=== PATIENT | male | born 1970 | race Caucasian/White ===

== ENCOUNTER 2021-04-04 03:19 | Outpatient (CLI) | payer OTHER, SELFPAY ==
[2021-04-04 07:51] LABS: Abs Immature Grans 0.02 10^3/uL (0.0-0.06); Absolute Basophil Count 0.05 10^3/uL (0.0-0.2); Absolute Eosinophil Count 0.04 10^3/uL (0.0-0.7); Absolute Lymphocyte Count 0.48 10^3/uL (1.2-3.4); Absolute Monocyte Count 0.46 10^3/uL (0.1-0.8); Basophils % 1.2; HCT 42.6 % (40.0-50.0); HGB 14.2 g/dL (13.5-17.5); Immature Grans % 0.5; Lymphocytes % 11.9; MCH 35.5 pg (27.0-33.0); MCHC 33.3 % (32.0-36.0); MCV 106.5 fL (80-95); MPV 9.9 fL (8.0-11.0); Monocytes % 11.4; Nucleated RBC 0 %; Platelet Count 423 10^3/uL (130-400); RDW 13.4 % (11.8-14.1); RDW-SD 53.5 fL; WBC 4.05 10^3/uL (4.4-10.8)
[2021-04-04 09:25] LABS: ALT 55 U/L (16-63); AST 32 U/L (15-37); Alkaline Phosphatase 58 U/L (46-116); Bilirubin, Direct 0.3 mg/dL (0.0-0.2); Bilirubin, Total 1.8 mg/dL (0.2-1.0); Total Protein 7.3 g/dL (6.4-8.2)
== END 2021-04-04 03:20 | disposition home or self-care (01) ==
LOC: LBO 03:19
PROVIDERS: Visit Provider Internal Medicine Gastroenterology
DX: R74.8 Abnormal levels of other serum enzymes (principal); K51.019 Ulcerative (chronic) pancolitis with unspecified complications; Z80.0 Family history of malignant neoplasm of digestive organs
CPT/HCPCS: 36415; 80076; 85025

== ENCOUNTER 2022-06-19 01:45 | Outpatient (CLI) | payer OTHER, SELFPAY ==
[2022-06-19 15:06] LABS: Abs Immature Grans 0.02 10^3/uL (0.0-0.06); Absolute Basophil Count 0.05 10^3/uL (0.0-0.2); Absolute Eosinophil Count 0.08 10^3/uL (0.0-0.7); Absolute Lymphocyte Count 0.41 10^3/uL (1.2-3.4); Absolute Monocyte Count 1.09 10^3/uL (0.1-0.8); Absolute Neutrophil Count 4.48 10^3/uL (1.2-6.7); Basophils % 0.8; Eosinophils % 1.3; HCT 40.4 % (40.0-50.0); HGB 13.3 g/dL (13.5-17.5); Immature Grans % 0.3; Lymphocytes % 6.7; MCH 35.4 pg (27.0-33.0); MCHC 32.9 % (32.0-36.0); MCV 107 fL (80-95); MPV 9.6 fL (8.0-11.0); Monocytes % 17.8; Neutrophils % 73.1; Platelet Count 391 10^3/uL (130-400); RBC 3.76 10^6/uL (4.36-5.78); RDW 14.6 % (11.8-14.1); RDW-SD 57.7 fL; WBC 6.13 10^3/uL (4.4-10.8)
[2022-06-19 16:12] LABS: Diff Comment RBC Morph Reviewed; Macrocytosis 1+
[2022-06-19 16:30] LABS: ALT 39 U/L (16-63); AST 27 U/L (15-37); Albumin 4.1 g/dL (3.4-5.0); Alkaline Phosphatase 67 U/L (46-116); Anion Gap 6.1 mmol/L (3-11); BUN 15 mg/dL (7-18); Bilirubin, Total 1.2 mg/dL (0.2-1.0); CO2 30.9 mmol/L (21.0-32.0); CREATININE 1.4 mg/dL (0.70-1.30); Calcium 8.5 mg/dL (8.5-10.1); Chloride 102 mmol/L (98-107); Estimated GFR 61.23 (mL/min/1.73m2); Glucose 102 mg/dL (74-106); Potassium 3.3 mmol/L (3.5-5.1); Sodium 139 mmol/L (136-145); Total Protein 7.7 g/dL (6.4-8.2)
== END 2022-06-19 01:46 | disposition home or self-care (01) ==
PROVIDERS: PCP Family Medicine; Visit Provider Internal Medicine Gastroenterology
DX: K51.019 Ulcerative (chronic) pancolitis with unspecified complications (principal)
CPT/HCPCS: 36415; 80053; 85025

== ENCOUNTER 2023-05-05 04:03 | Outpatient (CLI) | payer OTHER, SELFPAY ==
[2023-05-05 12:12] LABS: Abs Immature Grans 0.01 10^3/uL (0.0-0.06); Absolute Basophil Count 0.05 10^3/uL (0.0-0.2); Absolute Eosinophil Count 0.04 10^3/uL (0.0-0.7); Absolute Monocyte Count 0.71 10^3/uL (0.1-0.8); Absolute Neutrophil Count 3.84 10^3/uL (1.2-6.7); Basophils % 0.9; Eosinophils % 0.7; HCT 42.3 % (40.0-50.0); HGB 14.3 g/dL (13.5-17.5); Immature Grans % 0.2; Lymphocytes % 16.2; MCH 36.2 pg (27.0-33.0); MCHC 33.8 % (32.0-36.0); MCV 107 fL (80-95); MPV 10.3 fL (8.0-11.0); Monocytes % 12.8; Neutrophils % 69.2; Platelet Count 471 10^3/uL (130-400); RBC 3.95 10^6/uL (4.36-5.78); RDW-SD 56.3 fL; WBC 5.55 10^3/uL (4.4-10.8)
[2023-05-05 12:25] LABS: Macrocytosis 2+
[2023-05-05 12:58] LABS: ALT 55 U/L (16-63); AST 33 U/L (15-37); Albumin 4.2 g/dL (3.4-5.0); Alkaline Phosphatase 69 U/L (46-116); Anion Gap 9.9 mmol/L (3-11); BUN 12 mg/dL (7-18); Bilirubin, Total 1.3 mg/dL (0.2-1.0); CO2 28.1 mmol/L (21.0-32.0); CREATININE 0.9 mg/dL (0.70-1.30); Chloride 104 mmol/L (98-107); Glucose 90 mg/dL (74-106); Potassium 3.6 mmol/L (3.5-5.1); Sodium 142 mmol/L (136-145); Total Protein 7.7 g/dL (6.4-8.2)
== END 2023-05-05 04:04 | disposition home or self-care (01) ==
LOC: LBO 04:06
PROVIDERS: PCP Family Medicine; Visit Provider Internal Medicine Gastroenterology
DX: K51.019 Ulcerative (chronic) pancolitis with unspecified complications (principal)
CPT/HCPCS: 36415; 80053; 85025

== ENCOUNTER 2023-09-17 12:26 | Outpatient (REF) | payer BC, SELFPAY ==
[2023-09-17 15:37] LABS: Abs Immature Grans 0.01 10^3/uL (0.0-0.06); Absolute Basophil Count 0.03 10^3/uL (0.0-0.2); Absolute Eosinophil Count 0.03 10^3/uL (0.0-0.7); Absolute Lymphocyte Count 0.58 10^3/uL (1.2-3.4); Absolute Monocyte Count 0.49 10^3/uL (0.1-0.8); Absolute Neutrophil Count 2.95 10^3/uL (1.2-6.7); Basophils % 0.7; Eosinophils % 0.7; HCT 42.1 % (40.0-50.0); HGB 13.9 g/dL (13.5-17.5); Immature Grans % 0.2; Lymphocytes % 14.2; MCH 34.8 pg (27.0-33.0); MCV 105 fL (80-95); MPV 10.3 fL (8.0-11.0); Neutrophils % 72.2; Platelet Count 446 10^3/uL (130-400); RDW 14.1 % (11.8-14.1); RDW-SD 55.6 fL; WBC 4.09 10^3/uL (4.4-10.8)
[2023-09-17 16:00] LABS: Diff Comment RBC Morph Reviewed; Macrocytosis 2+
[2023-09-17 16:03] LABS: ALT 70 U/L (16-63); AST 34 U/L (15-37); Albumin 3.9 g/dL (3.4-5.0); Alkaline Phosphatase 66 U/L (46-116); Anion Gap 7.2 mmol/L (3-11); BUN 16 mg/dL (7-18); Bilirubin, Total 1.4 mg/dL (0.2-1.0); CO2 28.8 mmol/L (21.0-32.0); CREATININE 0.9 mg/dL (0.70-1.30); Chloride 105 mmol/L (98-107); Cholesterol 152 mg/dL (<200); Estimated GFR 102.76 (mL/min/1.73m2); Glucose 82 mg/dL (74-106); HDL Cholesterol 62 mg/dL (40-60); Potassium 4.2 mmol/L (3.5-5.1); Sodium 141 mmol/L (136-145); TSH 3.54 uIU/Ml (0.36-3.74); Total Protein 7.2 g/dL (6.4-8.2)
[2023-09-17 16:04] LABS: Triglyceride <25 mg/dL (<150)
[2023-09-17 16:37] LABS: LDL CHOLESTEROL 75 mg/dL (<100)
== END 2023-09-17 12:27 | disposition home or self-care (01) ==
LOC: NCHCN 12:26
PROVIDERS: PCP Family Medicine; Referring Provider Student in an Organized Health Care Education/Training Program; Visit Provider Student in an Organized Health Care Education/Training Program
DX: K51.90 Ulcerative colitis, unspecified, without complications (principal); Z13.220 Encounter for screening for lipoid disorders; Z13.29 Encounter for screening for other suspected endocrine disorder; Z13.228 Encounter for screening for other metabolic disorders
CPT/HCPCS: 80053; 80061; 83721; 84443; 85025

== ENCOUNTER 2023-09-27 12:59 | Outpatient (REF) | payer BC, SELFPAY ==
[2023-09-27 19:20] LABS: Folate 13.5 ng/mL (8.6-20.0); Vitamin B12 936 pg/mL (193-986)
== END 2023-09-27 13:00 | disposition home or self-care (01) ==
LOC: NCHCN 12:59
PROVIDERS: PCP Family Medicine; Visit Provider Student in an Organized Health Care Education/Training Program
DX: D53.8 Other specified nutritional anemias (principal)
CPT/HCPCS: 82607; 82746

== ENCOUNTER 2024-01-25 03:32 | Outpatient (CLI) | payer OTHER, SELFPAY ==
--- OUTSIDE RECORDS SUMMARY | 2024-01-25 03:35 | XMS_ITS | Data Portability ---
Author Organization [place] - [facility] Address [address] Dodd [facility] [place] [address] Assessment No assessment recorded. Plan of Treatment Reminders Order Date Submit Date Provider Last Modified By Organization Details Last Modified Time Details Appointments Annual Wellness Exam 40 2024 08:00A Lilian Fagan Not available Not available Not available Lab lipid panel, serum [email or web address] [facility] (Registration ), [address] [place] [address] [place], [address], 09/24/2023 13:46:36 CMP, serum or plasma - 1 SST, 1LAV 2023 024 [facility] (Registration ), [address] [place] [address] [place], [address], 09/17/2023 16:07:17 CBC w/ auto diff 2023 024 [facility] (Registration ), [address] [place] [address] [place], [address], 09/17/2023 16:02:20 TSH, serum or plasma [address] [facility] (Registration ), [address] [place] [address] [place], [address], 09/24/2023 13:46:36 vitamin B12 + folate, serum or blood - Right Ac 1 tiger 2023 024 [facility] (Registration ), [address] [place] [address] [place], [address], 10/25/2023 13:34:27 Referral None recorded. Procedures None recorded. Surgeries None recorded. Imaging None recorded. Medication Orders None recorded. Patient TargetsNo targets recorded. Patient Instructions Encounter Date Encounter Id Patient Instructions Last Modified By Organization Details Last Modified Time 09/17/2023 [id number] Go slow with the introduction back to running. If starting back to cross-fit/weight training/go slow with low reps, no weight, just focusing on form. Stop any strenght training set before you get shaky and wait until any muscle soreness resolves before working out again. [email or web address] Not available 09/17/2023 09:20:45 Reason for Referral None Reported. Results Created Date Observation Date Name Description Value Unit Range Abnormal Flag LastModifiedBy Organization Detail LastModifiedTime 09/17/1909/17/2023 COMPL ETE BLOOD COUNT W/DIF F WBC 4.09 10_3/ uL 4.4-10 .8 low Not Available [address] [facility] [place], [address] 09/17/2023 16:02:20 09/17/19 24 09/17/2023 COMPL ETE BLOOD COUNT W/DIF F RBC 4.00 10_6/ uL 4.36-5 .78 low Not Available [address] [place], [address] 09/17/2023 16:02:20 09/17/19 24 09/17/2023 COMPL ETE BLOOD COUNT W/DIF F HGB 13.9 g/dL 13.5-1 7.5 normal Not Available [address] [place], [address] 09/17/2023 16:02:20 09/17/19 24 09/17/2023 COMPL ETE BLOOD COUNT W/DIF F HCT 42.1 % 40.0-5 0.0 normal Not Available [address] [place], [address] 09/17/2023 16:02:20 09/17/19 24 09/17/2023 COMPL ETE BLOOD COUNT W/DIF F MCV 105 fL 80-95 high Not Available [place] [address] [place], [address] 09/17/2023 16:02:20 09/17/19 24 09/17/2023 COMPL ETE BLOOD COUNT W/DIF F MCH 34.8 pg 27.0-3 3.0 high Not Available [address] [place], [address] 09/17/2023 16:02:20 09/17/19 24 09/17/2023 COMPL ETE BLOOD COUNT W/DIF F MCHC 33.0 % 32.0-3 6.0 normal Not Available [address] [place], [address] 09/17/2023 16:02:20 09/17/19 24 09/17/2023 COMPL ETE BLOOD COUNT W/DIF F RDW 14.1 % 11.8-1 4.1 normal Not Available [address] [place], [address] 09/17/2023 16:02:20 09/17/19 24 09/17/2023 COMPL ETE BLOOD COUNT W/DIF F platelet count 446 10_3/ uL 130-40 0 high Not Available [address] [place], [address] 09/17/2023 16:02:20 09/17/19 24 09/17/2023 COMPL ETE BLOOD COUNT W/DIF F MPV 10.3 fL 8.0-11 .0 normal Not Available [address] [place], [address] 09/17/2023 16:02:20 09/17/19 24 09/17/2023 COMPL ETE BLOOD COUNT W/DIF F neutrophils % 72.2 Not Available [address] [place], [address] 09/17/2023 16:02:20 09/17/19 24 09/17/2023 COMPL ETE BLOOD COUNT W/DIF F lymphocytes % 14.2 Not Available [address] [place], [address] 09/17/2023 16:02:20 09/17/19 24 09/17/2023 COMPL ETE BLOOD COUNT W/DIF F monocytes % 12.0 Not Available [address] [place], [address] 09/17/2023 16:02:20 09/17/19 24 09/17/2023 COMPL ETE BLOOD COUNT W/DIF F eosinophils % 0.7 Not Available [address] [place], [address] 09/17/2023 16:02:20 09/17/19 24 09/17/2023 COMPL ETE BLOOD COUNT W/DIF F basophils % 0.7 Not Available [address] [place], [address] 09/17/2023 16:02:20 09/17/19 24 09/17/2023 COMPL ETE BLOOD COUNT W/DIF F immature grans % 0.2 Not Available [address] [place], [address] 09/17/2023 16:02:20 09/17/19 24 09/17/2023 COMPL ETE BLOOD COUNT W/DIF F nucleated RBC 0.0 % 0.0-0. 3 normal Not Available [address] [place], [address] 09/17/2023 16:02:20 09/17/19 24 09/17/2023 COMPL ETE BLOOD COUNT W/DIF F absolute neutrophil count 2.95 10_3/ uL 1.2-6. 7 normal Not Available [address] [place], [address] 09/17/2023 16:02:20 09/17/19 24 09/17/2023 COMPL ETE BLOOD COUNT W/DIF F absolute lymphocyte count 0.58 10_3/ uL 1.2-3. 4 low Not Available [address] [place], [address] 09/17/2023 16:02:20 09/17/19 24 09/17/2023 COMPL ETE BLOOD COUNT W/DIF F absolute monocyte count 0.49 10_3/ uL 0.1-0. 8 normal Not Available [address] [place], [address] 09/17/2023 16:02:20 09/17/19 24 09/17/2023 COMPL ETE BLOOD COUNT W/DIF F absolute eosinophil count 0.03 10_3/ uL 0.0-0. 7 normal Not Available [address] [place], [address] 09/17/2023 16:02:20 09/17/19 24 09/17/2023 COMPL ETE BLOOD COUNT W/DIF F absolute basophil count 0.03 10_3/ uL 0.0-0. 2 normal Not Available [address] [place], [address] 09/17/2023 16:02:20 09/17/19 24 09/17/2023 COMPL ETE BLOOD COUNT W/DIF F diff comment RBC Morph Review ed Not Available [address] [place], [address] 09/17/2023 16:02:20 09/17/19 24 09/17/2023 COMPL ETE BLOOD COUNT W/DIF F RBC morphology See Below Not Available [address] [place], [address] 09/17/2023 16:02:20 09/17/19 24 09/17/2023 COMPL ETE BLOOD COUNT W/DIF F macrocytosis 2+ Not Available Nor [address] [place], [address] 09/17/2023 16:02:20 09/17/19 24 09/17/2023 COMPR EHENS BETHANY METAB OLIC PANEL calcium 9.0 mg/dL 8.5-10 .1 normal Not Available [address] [place], [address] 09/17/2023 16:07:17 09/17/19 24 09/17/2023 COMPR EHENS BETHANY METAB OLIC PANEL glucose 82 mg/dL 74-106 normal Not Available [address] [place], [address] 09/17/2023 16:07:17 09/17/19 24 09/17/2023 COMPR EHENS BETHANY METAB OLIC PANEL BUN 16 mg/dL 7-18 normal Not Available [address] [place], [address] 09/17/2023 16:07:17 09/17/19 24 09/17/2023 COMPR EHENS BETHANY METAB OLIC PANEL creatinine 0.9 mg/dL 0.70-1 .30 normal Not Available [address] [place], [address] 09/17/2023 16:07:17 09/17/19 24 09/17/2023 COMPR EHENS BETHANY METAB OLIC PANEL estimated GFR 102.76 mL/min /1.73m 2 Not Available [address] [place], [address] 09/17/2023 16:07:17 09/17/19 24 09/17/2023 COMPR EHENS BETHANY METAB OLIC PANEL total protein 7.2 g/dL 6.4-8. 2 normal Not Available [address] [place], [address] 09/17/2023 16:07:17 09/17/19 24 09/17/2023 COMPR EHENS BETHANY METAB OLIC PANEL albumin 3.9 g/dL 3.4-5. 0 normal Not Available [address] [place], [address] 09/17/2023 16:07:17 09/17/19 24 09/17/2023 COMPR EHENS BETHANY METAB OLIC PANEL bilirubin, total 1.4 mg/dL 0.2-1. 0 high Not Available [address] [place], [address] 09/17/2023 16:07:17 09/17/1909/17/2023 COMPR EHENS BETHANY METAB OLIC PANEL alk phos 66 U/L 46-116 normal Not Available [address] [place], [address] 09/17/2023 16:07:17 09/17/19 24 09/17/2023 COMPR EHENS BETHANY METAB OLIC PANEL sodium 141 mmol/ L 136-14 5 normal Not Available [address] [place], [address] 09/17/2023 16:07:17 09/17/19 24 09/17/2023 COMPR EHENS BETHANY METAB OLIC PANEL potassium 4.2 mmol/ L 3.5-5. 1 normal Not Available [address] [place], [address] 09/17/2023 16:07:17 09/17/19 24 09/17/2023 COMPR EHENS BETHANY METAB OLIC PANEL chloride 105 mmol/ L 98-107 normal Not Available [address] [place], [address] 09/17/2023 16:07:17 09/17/19 24 09/17/2023 COMPR EHENS BETHANY METAB OLIC PANEL CO2 28.8 mmol/ L 21.0-3 2.0 normal Not Available [address] [place], [address] 09/17/2023 16:07:17 09/17/19 24 09/17/2023 COMPR EHENS BETHANY METAB OLIC PANEL anion gap 7.2 mmol/ L 3-11 normal Not Available [address] [place], [address] 09/17/2023 16:07:17 09/17/19 24 09/17/2023 COMPR EHENS BETHANY METAB OLIC PANEL AST 34 U/L 15-37 normal Not Available [address] [place], [address] 09/17/2023 16:07:17 09/17/19 24 09/17/2023 COMPR EHENS BETHANY METAB OLIC PANEL ALT 70 U/L 16-63 high Not Available [address] [place], [address] 09/17/2023 16:07:17 09/17/19 24 09/17/2023 LIPID 2 cholesterol 152 mg/dL <200 Not Available [address] [place], [address] 09/17/2023 16:07:18 09/17/19 24 09/17/2023 LIPID 2 triglyceride <25 mg/dL <150 Not Available [address] [place], [address] 09/17/2023 16:07:18 09/17/19 24 09/17/2023 LIPID 2 HDL cholesterol 62 mg/dL 40-60 Not Available Anthony monsalve [address] [place], [address] 09/17/2023 16:07:18 09/17/19 24 09/17/2023 LIPID 2 calculated LDL TNP mg/dL <100 Not Available [address] [place], [address] 09/17/2023 16:07:18 09/17/19 24 09/17/2023 TSH TSH 3.54 uIU/m L 0.36-3 .74 normal Not Available [address] [place], [address] 09/17/2023 16:07:19 09/17/19 24 09/17/2023 LIPID 2 cholesterol 152 mg/dL <200 Not Available [address] [place], [address] 09/17/2023 16:43:23 09/17/19 24 09/17/2023 LIPID 2 triglyceride <25 mg/dL <150 Not Available [address] [place], [address] 09/17/2023 16:43:23 09/17/19 24 09/17/2023 LIPID 2 HDL cholesterol 62 mg/dL 40-60 Not Available Anthony monsalve [address] [place], [address] 09/17/2023 16:43:23 09/17/19 24 09/17/2023 LIPID 2 calculated LDL TNP mg/dL <100 Not Available [address] [place], [address] 09/17/2023 16:43:23 09/17/19 24 09/17/2023 DIREC T LDL CHOL direct LDL chol 75 mg/dL <100 Not Available [address] [place], [address] 09/17/2023 16:43:24 09/17/19 24 09/17/2023 TSH TSH 3.54 uIU/m L 0.36-3 .74 normal Not Available [facility] [address] [facility] [place], [address] 09/17/2023 16:43:24 09/27/19 24 09/27/2023 VITAM IN B12 vitamin B12 936 pg/mL 193-98 6 normal Not Available [place] [address] [facility] [place], [address] 09/27/2023 19:28:37 09/27/19 24 09/27/2023 FOLAT E folate 13.5 NG/mL 8.6-20 .0 normal Not Available [address] [place], [address] 09/27/2023 19:28:37 Result Notes None recorded. Problems Name Status Onset Date Resolution Date Notes Provider Name and Address Organization Details Recorded Time Diarrhea Completed 08/31/2023 SHERRILL BALDERAS, [facility] 08/31/2023 07:17:49 Liver enzymes level above reference range Completed 08/31/2023 SHERRILL BALDERAS, [facility] 08/31/2023 07:23:06 Internal hemorrhoids Completed 08/31/2023 SHERRILL BALDERAS, [facility] 08/31/2023 07:17:42 Painful rectal bleeding Completed 08/31/2023 SHERRILL BALDERAS, [facility] 08/31/2023 07:17:57 Ulcerative colitis Completed 08/31/2023 WILMAR BADILLO [address], [place], [address] , [facility] 09/17/2023 07:36:47 Ulcerative colitis Active Follows with [facility], Dr. Cristino Sanchez. WILMAR BADILLO [address], [place], [address] , [facility]. 09/17/2023 07:36:47 Liver enzymes level above reference range [facility]23 07:23:06 Macrocytic anemia Active 024 WILMAR BADILLO [address], [place], [address] , [facility] 09/21/2023 06:59:44 Problem Notes None recorded. Procedures Surgical History Date Name Laterality Status Provider Name and Address Organization Details Recorded Time 1 [facility]23 07:18:29 6 sigmoidoscopy completed SHERRILL BALDERAS [facility] 08/31/2023 07:19:07 Imaging Results None recorded. Procedure Notes None recorded. Medical Equipment None Reported. Allergies No known drug allergies Medications Name Sig Start Date Stop Date Status Note LastModified by Organization Details LastModified Time sulfasalazine 500 mg tablet Take 4 tablets twice a day by oral route. 2021 active Not Available Not Available Not Avai lable mercaptopurine 50 mg tablet Take 2 tablets every day by oral route. 2021 active Not Available Not Available Not Avai lable folic acid 1 mg tablet Take 1 tablet every day by oral route. 2021 active Not Available Not Available Not Avai lable multivitamin 1 tablet daily active Not Available Not Available No t Available Vitals Date Recorded Body height Body mass index (BMI) Body weight Body temperature Oxygen saturation Oxygen saturation in Arterial blood by Pulse oximetry Heart rate Systolic blood pressure Diastolic blood pressure Provider Name and Address Organization Details Last Updated DateTime 4 178.56 cm 31.5 kg/m2 310562. 07 g 97.9 [degF] 98 % 98 % 77 /min 130 mm[Hg] 98 mm[Hg] SHAGGY LYONS MA [facility] 4 08:00:03 Social History Question Answer Notes LastModified by Organizat ion Details LastModified Time Tobacco Smoking Status Never Smoker SHERRILL BALDERAS [facility] 09/07/2023 13:26:04 Would You Say That, In General, Your Health Is Good Information not available 09/07/2023 How Often Does Anyone, Including Family, Physically Hurt You? Never Information not available 09/07/2023 How Often Does Anyone, Including Family, Insult Or Talk Down To You? Never Information no t available 09/07/2023 How Often Does Anyone, Including Family, Threaten You With Harm? Never Information not available 09/07/2023 How Often Does Anyone, Including Family, Scream Or Curse At You? Never Information not available 09/07/2023 Within The Past 12 Months, You Worried That Your Food Would Run Out Before You Got Money To Buy More. Never True Information n ot available 09/07/2023 Within The Past 12 Months, The Food You Bought Just Didn't Last And You Didn't Have Money To Get More. Never True Information not available 09/07/2023 How Hard Is It For You To Pay For The Very Basics Like Food, Housing, Medical Care, And Heating? Would You Say It Is: Not Hard At All Information not available 09/07/2023 In The Past 12 Months, Has Lack Of Reliable Transportation Kept You From Medical Appointments, Meetings, Work Or From Getting Things Needed For Daily Living? No Information not available 09/07/2023 What Is Your Housing Situation Today? I Have Housing. Information not available 09/07/2023 How Often In The Past Year Have You Used Marijuana (including Smoking, Vaping, Dabbing, Or Edibles)? Monthly Or Less Information not available 09/07/2023 How Often In The Past Year Have You Used Prescription Medications That Were Not Prescribed To You? Never Information not available 09/07/2023 How Often In The Past Year Have You Taken Your Own Prescription Medication More Than The Way It Was Prescribed Or For Different Reasons Than Its Intended Purpose? Never Information not available 09/07/2023 How Often In The Past Year Have You Used Other Drugs (for Example, Heroin, Cocaine, Meth, Salvia, Inhalants)? Never Information not available 09/07/2023 Have You Ever Used IV Drugs? No Information not available 09/07/2023 Date Of Most Recent SBINS 09/07/2023 Information not available 09/07/2023 Do You Or Have You Ever Used Any Other Forms Of Tobacco Or Nicotine? No Information not available 09/07/2023 Sex: Male Functional Status None recorded. Mental Status None recorded. Family History Relationship Description Onset Age of this Age Resolved Age Notes Father Malignant tumor of colon 55 Medical History No medical history recorded. Immunizations Vaccine Type Date Status Provider Name and Address Organization Details Recorded Time SARS-COV-2 (COVID-19) vaccine, UNSPECIFIED 12/01/2020 completed SHERRILL BALDERAS [facility] 09/16/2023 08:45:42 Tdap 01/17/2011 completed SHERRILL BALDERAS [facility] 09/16/2023 08:46:00 Past Encounters Encounter ID Performer Location Encounter Start Date Encounter Closed Date Diagnosis/Indication Diagnosis SNOMED-CT Code [id number] WILMAR BADILLO [facility] [address] [place] [address] 09/17/2023 07:49:04 09/17/2023 09:32:44 Ulcerative colitis 19469230 Hyperlipid emia screening 659855087 Endocrine/ metabolic screening 932706093 Screening for malignant neoplasm of prostate 999191197 Body mass index 30+ - obesity 560383556 [id number] Antonia Cortes RN [facility] [address] [place] [address] 09/27/2023 11:28:26 09/27/2023 11:35:05 Macrocytic anemia 52388617 Health Concerns Section Related Observation LastModified by Organization Detai ls LastModified Time None Recorded Concern Status LastModified by Organization Details LastModified Time None Recorded Advance Directives Directive None Recorded Payers Encounter Date Sequence Insurance Name Policy Number Policy Greene Covered Member ID Greene Member ID Guarantor Name 09/17/2023 1 [place] [facility] [id number] John Owusu [id number] John Owusu 09/27/2023 1 [place] [facility] [id number] John Owusu [id number] John Owusu Notes Date Note Type Note Provider Name and Address Organization Details Recorded Time 09/17/2023 text/html HPI Notes: Pt., 53-M, here to establish care. He has PMH notable for UC dx'd 1999, has been pt. of [facility], Dr. Cristino Sanchez, tx./w sulfasalazine and mercaptopuruine for many years duration. His last [employer] in his brief MR containing mostly GI visit notes was 06/2021, and last Gastro note we have is 06/2022 reviewing the results of that colonoscopy. Pt. to make appt. with [facility] once rest of insurance is in check. No flares, change in bowel pattern. Pt. father passes away in 1995 from colorectal cancer. Internal Hemorrhoids: Noted on 2020 [employer] report as mild. PSA screening, 06/2018 was 1.1. Cholesterol screenin06/2018 last labs of this with total 148, Triglycerides 56, LDL 76 and HDL 61. Hx. of transient AST/ALT elevation: Noted many years ago and resolved per [place] [facility] report. Hep C/HIV Screening: Pt. does report prior screening at his annual physical at the [employer]. Constitutional: Pt. denies fevers, chills, night sweats, and unexplained headaches. Ears: Pt. denies ear pain, discharge, loss of hearing. Eyes: Pt. denies any eye pain, flashers, floaters, loss of vision, double vision. He doesn't endorse 1.5 strength readers. Nose: Pt. denies any stuffiness, nasal obstructions, runny nose, and history of allergies. Mouth: Pt. denies any mouth sores, dental complaints, dry mouth. GI: Pt. denies dysphagia, dark or tarry stools, pencil thin stools, excessive gas or bloating, diarrhea or constipation. Pulmonary: Pt. denies any shortness of breath, cough, wheezing. Cardiac: Pt. denies any chest pain, light headedness, SOB disproportionate to activity. : Pt. denies any urinary dysfunction, difficulty starting or stopping, blood in urine, no nocturnal frequency. MSK: Pt. denies any MSK complaints. Pt. reports hips, ankles, and knees. Skin: Pt. denies any skin complaints, cuts that won't heal, moles that are changing. Pt. doesn't wear sunscreen, but does wear hats. Neuro: Pt. denies any lapses in memory or transient losses of any body function. Pt. reports no issue with balance. Endocrine: Pt. denies frequent urination, excessive hot or cold intolerance, or change in appetite or thirst drive. Hematologic: Pt. denies any easy bruising. Pt. denies history of anemia. Pt. denies any bleeding with tooth brushing. Social: Pt. reports that he is now OUT of the service. He had been over in [employer]. Pt. is solo, male. He was and divorxced in 2018. He reports they were both very busy with career work and amicabally separate. Weight: Currently 220, pt. plans to use bike path more this coming year by [employer]. He will walk/run out on [employer]. Family Hx: A lot of CA on her father's side of all types. His mother was recently diagnosed with cancer in her liver, bone, she is 74 and is in palliative care. Sister: No issues that John is aware of. Sister's son: Son born with biliary atresia, had multiple surgeries, liver transplant from his father, but ultimately . WILMAR BADILLO [address], [place], [address], [facility]. 09/17/2023 10:58:54
[2024-01-25 15:46] LABS: Abs Immature Grans 0.03 10^3/uL (0.0-0.06); Absolute Basophil Count 0.05 10^3/uL (0.0-0.2); Absolute Eosinophil Count 0.06 10^3/uL (0.0-0.7); Absolute Lymphocyte Count 1.06 10^3/uL (1.2-3.4); Absolute Monocyte Count 0.81 10^3/uL (0.1-0.8); Absolute Neutrophil Count 4.87 10^3/uL (1.2-6.7); Basophils % 0.7 %; Eosinophils % 0.9 %; HCT 40.9 % (40.0-50.0); HGB 13.5 g/dL (13.5-17.5); Immature Grans % 0.4 %; Lymphocytes % 15.4 %; MCH 33.9 pg (27.0-33.0); MCV 103 fL (80-95); MPV 10.5 fL (8.0-11.0); Monocytes % 11.8 %; Neutrophils % 70.8 %; Platelet Count 408 10^3/uL (130-400); RBC 3.98 10^6/uL (4.36-5.78); RDW 13.3 % (11.8-14.1); RDW-SD 50.9 fL; WBC 6.88 10^3/uL (4.4-10.8)
[2024-01-25 16:01] LABS: ALT 37 U/L (16-63); AST 30 U/L (15-37); Albumin 3.7 g/dL (3.4-5.0); Alkaline Phosphatase 72 U/L (46-116); Bilirubin, Direct 0.2 mg/dL (0.0-0.2); Bilirubin, Total 0.79 mg/dL (0.2-1.0); Total Protein 7.2 g/dL (6.4-8.2)
== END 2024-01-25 03:33 | disposition home or self-care (01) ==
PROVIDERS: PCP Family Medicine; Visit Provider Internal Medicine Gastroenterology
DX: R74.8 Abnormal levels of other serum enzymes (principal); Z80.0 Family history of malignant neoplasm of digestive organs; K51.019 Ulcerative (chronic) pancolitis with unspecified complications
CPT/HCPCS: 36415; 80076; 85025